=== PATIENT | male | born 1985 | race Caucasian/White ===

== ENCOUNTER 2019-08-29 18:34 | Emergency (ER) | payer BC, SELFPAY ==
[2019-08-29 18:35] VITALS: BP 158/97; PULSE 95; RESP 16; TEMP 36.6; O2SAT 98; BMI 25.1
--- NOTE | 2019-08-29 19:00 | RAD_ITS ---
STUDY: X-RAY - RIGHT FOOT CLINICAL: Male, 33 years old. PT TRIPPED TONIGHT, PAIN IN RT 1ST DIGIT TECHNIQUE: 3 view(s) of the foot. COMPARISON: None. FINDINGS: Normal talus, calcaneus, and tarsal bones. Normal visualized subtalar, talonavicular, calcaneocuboid, tarsal and tarsometatarsal articulations. Normal metatarsi. Normal metatarsophalangeal joint of the great toe. Normal interphalangeal joint of the great toe. There is a cortical defect within the dorsal aspect of the proximal metaphysis first distal phalanx consistent with an underlying fracture. Normal second through fifth metatarsophalangeal joints. Normal interphalangeal joints and phalanges of the lesser toes. The soft tissue structures are unremarkable. RAD/Foot min 3 Views IMPRESSION: First distal phalanx fracture. Electronically Signed: Echo Yip MD at 19:35 EST Tel , Service support ,
--- NOTE | 2019-08-29 19:11 | ED.VISSUMM ---
- ER Visit Summary Date of Service: 08/29/19 Chief Complaint: Right great toe injury History of Present Illness: The patient is a 33 M significant past medical or surgical history. Patient was dog outside. The dog need cardiomyotomy 41 (20 came back to the ground on the ground. He did have fevers on. Denies any prior foot injury or surgery. Complaining of right great toe pain. No other injuries. Physical Examination: Young male no acute distress vital signs stable afebrile. H EENT exam unremarkable neck nontender. Lungs are clear. Heart regular rhythm. Calf nontender. Abdomen soft nontender. He is moving all 4 extremities. Neurovascular intact. Right great toe he has mild swelling and tenderness. Primarily over the phalanges. He can wiggle all toes. DP pulses intact. There is no gross bony deformity. Other toes and ankle is nontender. Otherwise exam unremarkable. Test Results: X-ray right foot 3 view shows on the oblique view shows a fracture of the distal both the great toe. Not visualized on the AP view. Read by myself and radiologist. I did go over the x-ray with patient. Emergency Department Course and Treatment: Patient did not want a postop shoe. Treatment Plan: Ice and elevate the right great toe. Motrin for pain and swelling. Follow-up if not improving. Disposition: Discharge Impression: Acute right great toe distal phalanx fracture This note was generated with eSentire dictation software. It may contain incorrect words, spelling, and punctuation that were not noted in review of the chart prior to signing ED Disposition - Plan for ED Patient: Referrals: Care Physician,No Primary [Primary Care Provider] -
--- NOTE | 2019-08-29 19:46 | ED.DEP ---
ED Disposition - Plan for ED Patient: Disposition: Home or Assisted Living Instructions: FRACTURE, Toe [Closed] Referrals: Gavin Meier MD [STAFF PHYSICIAN] - As Needed Additional Instructions: A small fracture of the distal end of the right great toe. Ice and elevate. Tylenol Motrin for pain. Follow-up as needed.
[2019-08-29 19:58] VITALS: BP 145/86; PULSE 76; RESP 15; O2SAT 97
== END 2019-08-29 20:00 | disposition home or self-care (01) ==
PROVIDERS: Emergency Provider Emergency Medicine
DX: S92.421A Displaced fracture of distal phalanx of right great toe, initial encounter for closed fracture (principal); X58.XXXA Exposure to other specified factors, initial encounter; Y93.9 Activity, unspecified; Y92.9 Unspecified place or not applicable
CPT/HCPCS: 73630; 99282

== ENCOUNTER 2021-09-10 13:32 | Emergency (ER) | payer BC, SELFPAY ==
[2021-09-10 13:34] VITALS: BP 154/106; PULSE 110; RESP 18; TEMP 36.6; O2SAT 99; BMI 25.7
--- NOTE | 2021-09-10 16:05 | EKG12_ITS ---
Test Reason : SOB/HTN Blood Pressure : / mmHG Vent. Rate : 092 BPM Atrial Rate : 092 BPM P-R Int : 158 ms QRS Dur : 088 ms QT Int : 352 ms P-R-T Axes : 043 -18 031 degrees QTc Int : 435 ms Normal sinus rhythm Normal ECG Confirmed by RAYSHAWN ARAGON, AAKASH ([id number]), design editor ZOHREH WEBSTER ([id number]) on 09/12/2021 11:34:03 AM Referred By: ORMAIN Confirmed By:AAKASH TABARES MD
[2021-09-10] MEDS: hydrOXYzine PAM 25 MG Capsule PO (16:09)
[2021-09-10 16:11] VITALS: BP 163/93; PULSE 101; RESP 19
--- NOTE | 2021-09-10 16:31 | EDS_ITS ---
HPI History of Present Illness Chief Complaint: Anxiety Informant: patient Onset/Context/Timing Onset: Today Context: Gradual Onset Timing: Continuous Quality: Anxious Location: Generalized Worsened by: Nothing Relieved by: Nothing Narrative Narrative: Patient presents with anxiety that began today. Patient states he had large amount of alcohol yesterday. Patient states that today his anxiety has been getting progressively worse. Patient states he has had some inte rmittent pain in his chest. Patient admits to some nausea but denies any vomiting. Patient denies any suicidal or homicidal ideations. Patient states nothing makes his anxiety better and nothing makes it worse. Patient states it has been constant all day today. PFSH PFSH Medical History no medical history no medical history Home Medications NK 08/29/19 [History Last Taken Unknown] Allergy/AdvReac Type Severity Reaction Status Date / Time No Known Allergies Allergy Verified 09/10/21 13:35 Surgical History no surgical history no surgical history Social History Smoking Status: Never smoker ROS ROS ED Constitutional Constitutional ED: Denies chills or fever(s) Eyes Eyes: Denies blurry vision or change in vision ENT ENT ED: Denies rhinorrhea or sore throat Cardiovascular Cardiovascular: Reports chest pain; Denies palpitations Respiratory/Chest Respiratory/Chest: Denies cough or dyspnea Gastrointestinal Gastrointestinal: Reports nausea; Denies vomiting Genitourinary Genitourinary ED: Denies dysuria or hematuria Musculoskeletal Musculoskeletal: Denies back pain or neck pain Integumentary Denies abscess or rash Neurologic Neurologic: Denies headache(s) or weakness Psychiatric Psychiatric: Reports anxiety; Denies suicidal ideation or suicidal thoughts Allergic/Immunologic Allergic/Immunologic ED: Denies mouth swelling or urticaria EXAM Physical Exam Const Vital Signs: 09/10/21 13:34 09/10/21 16:11 Temperature 97.9 F Temperature Source Temporal Pulse Rate 110 H 101 H Respiratory Rate 18 19 H Blood Pressure 154/106 H 163/93 H Blood Pressure Mean 122 116 Pulse Ox 99 Oxygen Delivery Method Room Air Positive well nourished and well developed General Appearance ED: well developed HEENT Reports moist mucous membranes Neck supple and no JVD Resp normal respiratory effort and clear to auscultation bilaterally Cardio regular rate, regular rhythm and no murmurs GI normal to inspection, nondistended, normoactive bowel sounds and non-tender Palpation: soft Extremity normal to inspection General Extremety ED: Negative for edema or tenderness General Extremity: Negative for edema Neuro oriented x3, CN's II-XII intact bilaterally and no sensory deficits noted Sensorium / Orientation: alert Motor Exam: strength 5/5 throughout Psych mental status grossly normal Skin no rashes or lesions noted MDM MDM MDM Narrative Medical decision making narrative: EKG was obtained. On my interpretation, it showed a normal sinus rhythm with a rate of 92. NH interval, QRS interval, and QTc intervals were all normal. [place] was normal. There are no acute ST or T wave changes. Patient was given a dose of hydroxyzine here. Patient was starting to feel better on reevaluation. Patient was instructed to drink plenty of fluids. Patient was instructed to follow-up with his primary care physician in 5 to 7 days. Patient was instructed to abstain from alcohol for the next few days. Patient understood and was agreeable with the plan. All questions were answered EKG Initial EKG: Attestation: I personally reviewed and interpreted this EKG as follows: Interpretation: Sinus Rhythm (92) and No Acute Injury Pattern Discharge Plan Triage Chief Complaint: Anxiety ED Provider: Yobany Gonzalez Dx/Rx/DC Orders Clinical Impression: Anxiety attack Instructions: ED Anxiety Reaction Prescriptions: No Action NK RF: 0 Primary Care Provider: Care Physician,No Primary Referrals: Gypsy Charles DO [STAFF PHYSICIAN] - 5-7 Days Care Physician,No Primary [Primary Care Provider] - Disposition Disposition: Home, Self Care
[2021-09-10 17:17] VITALS: PULSE 89; RESP 18; O2SAT 100
== END 2021-09-10 17:25 | disposition home or self-care (01) ==
PROVIDERS: Emergency Provider Emergency Medicine; Visit Provider Emergency Medicine
DX: F41.0 Panic disorder [episodic paroxysmal anxiety] (principal)
CPT/HCPCS: 93005; 99282

== ENCOUNTER 2024-09-24 17:54 | Emergency (ER) | payer OTHER, SELFPAY ==
[2024-09-24 17:55] VITALS: BP 130/89; PULSE 76; RESP 13; TEMP 37.1; O2SAT 100; BMI 23.6
--- NOTE | 2024-09-24 18:22 | EDS_ITS ---
HPI History of Present Illness Chief Complaint: Flank Pain PFSH PFS Medical History Major depressive disorder No known health problems Home Medications ?Medication ?Instructions ?Recorded ?Last Taken ?Type NK 09/24/24 Unknown History Allergy/AdvReac Type Severity Reaction Status Date / Time No Known Allergies Allergy Verified 09/24/24 17:56 Family History Father Anxiety Mother Anxiety Surgical History No history of previous surgery Social History Smoking Status: Never smoker alcohol intake: current alcohol intake frequency: holidays/special occasions only substance use type: does not use EXAM Physical Exam Const Vital Signs: 09/24/24 17:55 09/24/24 20:00 Temperature 98.7 F Temperature Source Oral Pulse Rate 76 64 Respiratory Rate 13 16 Blood Pressure 130/89 H 134/78 H Blood Pressure Mean 102 96 Pulse Ox 100 98 Oxygen Delivery Method Room Air Room Air MDM MDM MDM Narrative Medical decision making narrative: HISTORY OF PRESENT ILLNESS: 38-year-old male presents sudden onset of sharp left-sided abdominal pain radiating to the back and groin. States he feels intense pressure at times. He further states he thinks he may have a kidney stone. No history of prior kidney stones. No falls. No fever. No trouble urinating. No testicular pain REVIEW OF SYSTEMS: Pertinent positives: Flank pain, nausea Pertinent negatives: Vomiting PHYSICAL EXAM: Nursing triage notes reviewed, Vital signs reviewed Constitutional: please see mdm HENT: MMM Eyes: Pupils equal round and reactive to light, Extraocular muscles intact Neck: No stridor, no JVD, full neck ROM Lungs: Clear to auscultation, No wheezing or rales. No increased work of b reathing, no conversational dyspnea, no accessory muscle use, no nasal flaring. No respiratory distress noted Heart: Regular rate and rhythm, No murmurs, No rubs and No gallops, 2+ distal pulses (radial, femoral, posterior tibial) in all extremities Abdomen: Soft, there is no tenderness, rigidity, rebound or guarding, no obvious peritoneal signs, no palpable pulsatile abdominal masses, no auscultated abdominal bruit : Positive left CVAT Extremities: No edema Neuro: No new focal neurological deficits, cranial nerves II through XII intact, 5/5 strength in all present extremities. Intact sensation to light touch in all present extremities, 2+ reflexes bilateral patella tendons. Skin: No rash or lesions noted MEDICAL DECISION MAKING: Chief Complaint: Flank pain External records reviewed: Reviewed prior imaging studies: Reviewed CT scan of the abdomen pelvis from 2014 which showed no acute or inflammatory process seen in the abdomen pelvis Factors affecting care: Depression Social determinants of health: History mental health disorder History obtained from others: none Consults: none [facility] Narrative: The patient was initially hemodynamically stable, afebrile and nontoxic- appearing. Exam with left CVA tenderness I considered the following differential diagnosis: Nephrolithiasis, pyelonephritis, UTI, AAA ALL IMAGES (IF OBTAINED) HAVE BEEN PERSONALLY REVIEWED AND INTERPRETED BY MYSELF. CBC with leukocytosis suggestive of systemic inflammation, no anemia or thrombocytopenia BMP without evidence of significant electrolyte abnormalities, no anion gap, no acute kidney injury. Urinalysis shows no evidence of urinary inflammation suggestive of UTI CT scan of the abdomen pelvis without contrast showed left hydronephrosis and evidence of recently passed kidney stone On reassessment patient's pain completely improved. Is consistent with a passed kidney stone. Urine was not infected. The patient's proper for discharge home The patient and/or family, caregivers express understanding. The patient and/or family, caregivers agrees with the plan. Shared decision making: I will have a discussion with the patient and or visitors regarding risk/benefits of further testing or admission. They will be made aware of of the risk/benefits inherent in this decision they will be given the opportunity to voice understanding. Total critical care time today provided was at least 0 minutes. This excludes separately billable procedures. Critical care time (if documented) is secondary to the patient having high probability of clinically significant/life threat ening deterioration in the patient's condition which required my urgent intervention. Impression: 1. Left flank pain 2. Kidney stone 3. Hydronephrosis Dispo: Discharge This note was generated with [employer] dictation software. It may contain incorrect words, spelling, and punctuation that were not noted in review of the chart prior to signing. Lab Data Labs: Laboratory Results - last 24 hr 09/24/24 09/24/24 17:59 19:42 WBC 13.7 H RBC 4.93 Hgb 14.8 Hct 43.8 MCV 88.8 MCH 30.0 MCHC 33.8 RDW Std Deviation 41.7 RDW Coeff of Felipa 12.9 Plt Count 256 MPV 10.2 Immature Gran % (Auto) 0.200 Neut % (Auto) 38.3 L Lymph % (Auto) 54.3 H Jackson % (Auto) 6.1 Eos % (Auto) 0.6 Baso % (Auto) 0.5 Absolute Neuts (auto) 5.2 Absolute Lymphs (auto) 7.42 H Nucleated RBC % 0 Reactive Lymphocytes 2+ Platelet Estimate A Sodium 139 Potassium 3.4 Chloride Direct 100 Carbon Dioxide 24.7 Anion Gap 14 BUN 14 Creatinine 1.21 H Estim Creat Clear Calc 89.89 Est GFR (MDRD) Non-Af 80 BUN/Creatinine Ratio 11.6 Glucose 117 H Calcium 9.5 Urine Color Yellow Urine Clarity Clear Urine pH 6.5 Ur Specific [place] 1.015 Urine Protein 15 H Urine Glucose (UA) Normal Urine Ketones 50 H Urine Occult Blood 10 H Urine Nitrite Negative Urine Bilirubin Negative Urine Urobilinogen Normal Ur Leukocyte Esterase Negative Urine RBC 0-5 SEEN Urine WBC 0-5 SEEN Ur Squamous Epith Cells 0 SEEN Urine Bacteria 0 SEEN Urine Mucus 1+ Radiography Diagnostic Testing: Clinical Impression(s) from Imaging Studies Abdomen/Pelvis CT 09/24/24 18:31 IMPRESSION: 1. Mild left hydroureteronephrosis with punctate calculus at the left vesicoureteral junction, compatible with recently passed kidney stone. No additional renal calculi. 2. Otherwise unremarkable noncontrast CT of the abdomen and pelvis. One or more dose reduction techniques were used (e.g., Automated exposure control, adjustment of the mA and/or kV according to patient size, use of iterative reconstruction technique). Reading Location: [facility] Discharge Plan Triage Chief Complaint: Flank Pain ED Provider: Elvis Cleveland Dx/Rx/DC Orders Prescriptions: No Action NK Primary Care Provider: Care Physician,No Primary Referrals: Care Physician,No Primary [Primary Care Provider] - Print Language: Faroese
--- NOTE | 2024-09-24 18:31 | CT_ITS ---
PROCEDURE: ABDOMEN/PELVIS WITHOUT CONT REASON FOR EXAM: 38-year-old male, left-sided flank pain, concern for kidney stone. TECHNIQUE: Abdomen and pelvis CT without intravenous contrast. No oral contrast. COMPARISON: None. FINDINGS: Noncontrast technique limits evaluation of the abdominal and pelvic viscera. Lung bases: The heart is normal in size. The bibasilar lungs are clear. Liver: The unopacified liver is normal in size. No biliary ductal dilation. Gallbladder: No radiopaque stones within the gallbladder. Spleen: Unremarkable. Pancreas: Unremarkable. Adrenals: Unremarkable. Kidneys/bladder: Right lower pole renal cysts. Otherwise unremarkable right kidney. Mild left hydroureteronephrosis with punctate calculus just anterior to the left vesicoureteral junction. The urinary bladder is mildly distended. Reproductive Organs: Unremarkable. Bowel: The bowel loops are normal in caliber. No ascites or pneumoperitoneum. Normal appendix. Lymph nodes: Trace fluid/edema within the left retroperitoneum adjacent to the course of the left ureter, likely secondary to recent inflammation. No suspicious lymph node enlargement. Vasculature: Major vascular structures are unremarkable. Bones: No aggressive osseous lesions. CT/Abdomen/Pelvis without Cont IMPRESSION: 1. Mild left hydroureteronephrosis with punctate calculus at the left vesicoure teral junction, compatible with recently passed kidney stone. No additional renal calculi. 2. Otherwise unremarkable noncontrast CT of the abdomen and pelvis. One or more dose reduction techniques were used (e.g., Automated exposure contr ol, adjustment of the mA and/or kV according to patient size, use of iterative reconstruction technique). Reading Location: [facility]
[2024-09-24 18:51] LABS: Absolute Lymphocyte Count 7.42 X10^3/uL (0.83-4.51); Absolute Neutrophil Count 5.2 X10^3/uL (2.0-7.7); Basophil# 0.07 X10^3/uL; Basophil% 0.5 % (0-1); Eosinophil# 0.08 X10^3/uL; Eosinophils% 0.6 % (0-5); Hematocrit 43.8 % (40-54); Hemoglobin 14.8 g/dL (13.0-16.5); Lymphocyte # 7.42 X10^3/ul (0.83-4.51); Lymphocyte % 54.3 % (19-41); Mean Corp Hgb Conc 33.8 g/dL (32-36); Mean Corpuscular Volume 88.8 fL (80-94); Mean Platelet Vol. 10.2 fl (6.2-12.0); Monocyte# 0.84 X10^3/uL; Monocyte% 6.1 % (0-10); NRBC Flagged by Analyzer 0 % (0-5); Neutrophil # 5.23 X10^3/uL (2.7-7.7); Neutrophil % 38.3 % (47-70); POSITIVE DIFFERENTIAL YES; POSITIVE MORPHOLOGY YES; Platelet Count 256 K/mm3 (150-450); RBC Distribution Width CV 12.9 % (11.6-14.6); RBC Distribution Width SD 41.7 fl (35.1-43.9); Red Blood Count 4.93 M/mm3 (4.6-6.2); White Blood Count 13.7 K/mm3 (4.4-11.0)
[2024-09-24 18:52] LABS: Differential Indicated SCAN CRITERIA MET
[2024-09-24] MEDS: Ondansetron 4 MG/2 ML Vial IV (18:59)
[2024-09-24] MEDS: Morphine 4 MG/ML Syringe IV (18:59)
[2024-09-24] MEDS: 0.9% Normal Saline (1000mL) 1,000 ML 999 ML IV (18:59)
[2024-09-24] MEDS: Ketorolac 15 MG/ML Vial IV (18:59)
[2024-09-24 19:21] LABS: Anion Gap 14 (5-15); BUN 14 mg/dL (4-19); BUN/Creat Ratio 11.6 RATIO (10-20); Calcium 9.5 mg/dL (7.6-11.0); Carbon Dioxide 24.7 mmol/L (22.0-29.0); Chloride 100 mmol/L (96-108); Creatinine, Serum 1.21 mg/dL (0.70-1.20); EST Glomerular Filtration Rate 80 (>60); Estimated Creatinine Clearance 89.89 ml/min; Glucose 117 mg/dL (70-99); Potassium 3.4 mmol/L (3.3-5.1); Sodium Level 139 mmol/L (133-145)
[2024-09-24 19:39] LABS: Reactive Lymphocyte 2+
[2024-09-24 19:40] LABS: Platelet Estimate A (ADEQ)
[2024-09-24 19:48] LABS: Bacteria 0 SEEN /hpf (None Seen); Squamous Epithelial Cells - UA 0 SEEN /hpf (0-5)
[2024-09-24 20:00] VITALS: BP 134/78; PULSE 64; RESP 16; O2SAT 98
[2024-09-24 20:01] LABS: Glucose, Dipstick Normal (Normal); Ketone-Dipstick 50 mg/dl (Negative); Leukocyte Esterase-Dipstick Negative /ul (Negative); Nitrite-Dipstick Negative (Negative); Occult Blood-Urine 10 /ul (Negative); Protein-Dipstick 15 mg/dl (Negative); Specific Gravity, Urine 1.015 (1.002-1.030); Urine Bilirubin Dipstick Negative (Negative); Urine Urobilinogen Normal (Normal); Urine pH 6.5 (5.0 - 8.0)
[2024-09-24 20:05] LABS: Color, Urine Yellow (Yellow); Urine Clarity Clear (Clear)
[2024-09-24 20:12] LABS: Mucous, Urine 1+ /hpf (<or=2+); Red Blood Cells-Urine 0-5 SEEN /hpf (0-5); White Blood Cells 0-5 SEEN /hpf (0-5)
[2024-09-24 20:32] VITALS: BP 128/78; PULSE 64; RESP 16; TEMP 36.6; O2SAT 99
== END 2024-09-24 20:33 | disposition home or self-care (01) ==
PROVIDERS: Emergency Provider Emergency Medicine; Visit Provider Emergency Medicine
DX: N13.2 Hydronephrosis with renal and ureteral calculous obstruction (principal); R10.9 Unspecified abdominal pain
CPT/HCPCS: 74176; 80048; 81001; 85025; 96361; 96374; 96375; 99283; A4216; J2405

== ENCOUNTER 2025-04-05 20:31 | Emergency (ER) | payer OTHER, SELFPAY ==
[2025-04-05 20:32] VITALS: BP 149/98; PULSE 64; RESP 18; TEMP 36.2; O2SAT 100; BMI 25.9
--- NOTE | 2025-04-05 21:24 | CT_ITS ---
PROCEDURE: CTA HEAD AND NECK W/ CONTRAST 04/05/2025 REASON FOR EXAM: RIGHT ARM PARESTHESIAS TECHNIQUE: Procedure Code: [id number].HDNCK Modality: CT Procedure: CTA HEAD AND NECK W/ CONTRAST Multiplanar Sagittal and Coronal images were obtained. 3D/MIP postprocessing was performed CONTRAST: Isovue 370 VOLUME: 99 mL One or more dose reduction techniques were used (e.g., Automated exposure control, adjustment of the mA and/or kV according to patient size, use of iterative reconstruction technique). RADIATION DOSE SUMMARY: DLP: 1672.21 mGycm COMPARISON: None available. FINDINGS: CTA HEAD: Patent intracranial arterial vasculature. No large vessel occlusion, flow- limiting stenosis, saccular aneurysm, or vascular malformation identified. origin of the left [employer] CLAIMS A[employer]LYST with diminutive/hypoplastic connection to the basilar artery, an anatomic variant. Dural venous sinuses appear patent. CTA NECK: Conventional aortic arch branching. Bilateral cervical carotid and codominant vertebral arteries are patent, normal in course and caliber. No aneurysm or dissection. NONCONTRAST CT HEAD: No acute intracranial hemorrhage, extra-axial collection, mass effect or evidence of acute infarct. Ventricular and sulcal size and configuration are within normal limits. Prominent slightly asymmetric cisterna magna, versus possible small retrocerebellar benign arachnoid cyst. Unremarkable orbits. Intact skull base and calvarium. Well-aerated paranasal sinuses and mastoid air cells. CT/CTA Head AND Neck W/ Contrast IMPRESSION: Normal CTA of the head neck. No aneurysm or dissection. Reading Location: [facility]
[2025-04-05 21:53] LABS: Hematocrit 43.2 % (40-54); Hemoglobin 14.8 g/dL (13.0-16.5); Immature Granulocytes Count 0.030 X10^3/uL (0.0-0.0); Mean Corp Hgb Conc 34.3 g/dL (32-36); Mean Corpuscular Volume 88.2 fL (80-94); Mean Platelet Vol. 9.5 fl (6.2-12.0); NRBC Flagged by Analyzer 0 % (0-5); Platelet Count 231 K/mm3 (150-450); RBC Distribution Width CV 12.4 % (11.6-14.6); RBC Distribution Width SD 40.3 fl (35.1-43.9); Red Blood Count 4.90 M/mm3 (4.6-6.2); White Blood Count 9.5 K/mm3 (4.4-11.0)
[2025-04-05 22:05] LABS: Partial Thromboplast Time 25.7 Seconds (24.1-36.2); Prothrombin Time (Protime)PT. 12.7 SECONDS (11.7-14.9)
--- NOTE | 2025-04-05 22:05 | RAD_ITS ---
PROCEDURE: L/S SPINE MIN 4 VIEWS 04/05/2025 REASON FOR EXAM: PAIN, LEFT LEG PARESTHESIAS TECHNIQUE: Procedure Code: RADSPLS Modality: DX Procedure: L/S SPINE MIN 4 VIEWS FINDINGS: No evidence of acute fracture or dislocation. Vertebral body heights are maintained. Mild disc space narrowing at L5-S1. The remaining intervertebral disc spaces are maintained. RAD/L/S Spine Min 4 Views IMPRESSION: L5-S1 mild spondylosis. Reading Location: [id number]
[2025-04-05 22:17] LABS: Anion Gap 12 (5-15); BUN 13 mg/dL (4-19); BUN/Creat Ratio 10.9 RATIO (10-20); Calcium,Total 9.2 mg/dL (7.6-11.0); Carbon Dioxide 24.6 mmol/L (21.0-32.0); Chloride 102 mmol/L (98-108); Estimated Creatinine Clearance 92.86 ml/min (50-250); Glucose 89 mg/dL (70-99); Potassium 3.5 mmol/L (3.3-5.1)
--- NOTE | 2025-04-05 23:11 | EDS_ITS ---
HPI History of Present Illness Chief Complaint: Back Informant: patient Narrative Narrative: Patient is a 39-year-old male with history of depression and prior to this disease diagnosed in his lumbar spine. He is presenting today for worsening back pain, stiffness, numbness to his left calf area as well as an episode of numbness to his right arm. Patient states he goes to the chiropractor monthly. He had adjustments on , 4 days ago. He states he had his back and neck popped. He states usually feels much better after this but the following afternoon he started to feel more tight and stiff in his back. He has has been having worsening pain in his lower back and pain going down his left leg. He started to have numbness in his left calf area. States he just feels very tight and stiff. He had notes since then he has had some increased ringing in his ears. Denies any headaches. Denies any vision changes. Was at a orthodoxy event tonight when he suddenly felt flushed and then his right arm felt numb and tingly. There were healthcare providers there and he has blood pressure checked it was 156/113. He decided to come in to be evaluated. He has been taking ibuprofen and Tylenol with no relief of his recent low back pain. Denies any bowel or bladder incontinence. Denies any saddle anesthesia. No fever or chills reported. States he has just felt cloudy and more can today. Denies any neck pain. Denies any nausea or vomiting. [facility] Medical History Major depressive disorder No known health problems Home Medications ?Medication ?Instructions ?Recorded ?Last Taken ?Type hydrocodone-acetaminophen 5-325mg 1 tab PO Q8H PRN Natalee n 3 days #10 04/05/25 Unknown Rx 5mg-325mg TABLETS prednisone 20 mg tablet 40 mg (2 x 20 mg) PO DAILY # 10 tabs 04/05/25 Unknown Rx Allergy/AdvReac Type Severity Reaction Status Date / Time No Known Allergies Allergy Verified 04/05/25 20:32 Family History Father Anxiety Mother Anxiety Surgical History No history of previous surgery Social History (Reviewed 09/24/24 @ 18:05 by Neris Yang Smoking Status: Never smoker alcohol intake: current alcohol intake frequency: holidays/special occasions only substance use type: does not use ROS ROS ED Constitutional Constitutional ED: Denies chills or fever(s) Eyes Eyes: Denies blurry vision or change in vision ENT ENT ED: Reports other Details: Tinnitus?does report a history of it but feels that it has been worse the past few days ; Denies ear pain, rhinorrhea or sore throat Cardiovascular Cardiovascular: Denies chest pain Respiratory/Chest Respiratory/Chest: Denies cough or dyspnea Gastrointestinal Gastrointestinal: Denies abdominal pain, diarrhea, nausea or vomiting Genitourinary Genitourinary ED: Denies dysuria, hematuria or urinary frequency Musculoskeletal Musculoskeletal: Reports back pain; Denies neck pain Integumentary Denies rash Neurologic Neurologic: Reports paresthesias RUE and LUE (Calf area); Denies headache(s) or weakness Hematologic/Lymphatic Hematologic/Lymphatic: Denies easy bleeding or easy bruising EXAM Physical Exam Const Vital Signs: 04/05/25 20:32 04/05/25 23:29 Temperature 97.2 F L 97.2 F L Temperature Source Temporal Pulse Rate 64 71 Respiratory Rate 18 18 Blood Pressure 149/98 H 132/71 H Blood Pressure Mean 115 91 Pulse Ox 100 100 Oxygen Delivery Method Room Air Positive well nourished and well developed General Appearance ED: well developed and NAD Eyes PERRL Neck supple and no JVD Neck Narrative: No bruising appreciated. No midline tenderness. Normal ROM Chest Wall inspection of chest normal and palpation of chest normal Resp normal respiratory effort and clear to auscultation bilaterally Cardio regular rate, regular rhythm and no murmurs Cardio Narrative: 2+ radial and DP pulses GI normal to inspection, nondistended, normoactive bowel sounds, non-tender and non-distended Back/Spine Thoracic Spine / Upper Back: Negative for thoracic spinal tenderness or paraspinal muscle tenderness Lumbar Spine / Lower Back: Negative for lumbar spinal tenderness Extremity normal to inspection Neuro oriented x3 and CN's II-XII intact bilaterally Neuro Narrative: Normal strength and sensation of the upper extremities. Normal strength and sensation of the right lower extremity. 5/5 strength with flexion extension of the great toe. Equal bilateral sensation of the into between the 1st and 2nd toes. The left lower extremity patient has preserved strength with plantar dorsiflexion. He has subjective paresthesias to the left calf area. Increased pain with straight leg to the raise of the left leg Normal coordination Sensorium / Orientation: alert Psych mental status grossly normal Skin no rashes or lesions noted and no wounds MDM MDM MDM Narrative Medical decision making narrative: Patient is evaluated for worsening pain going down his left leg with paresthesias to his left calf as well as an episode of paresthesias to his right arm. Patient had recent chiropractic adjustment to his neck and differential includes TIA, carotid artery dissection, arrhythmia, lumbar radiculopathy as well as anxiety reaction. He does not have any fever or meningeal signs low special for meningitis. Patient is given IV morphine and Zofran for symptoms associated with his low back pain. CBC, coags and BMP obtained which were all largely normal. CT of the head and neck is normal with no aneurysm or dissection. Lumbar spinal x- rays obtained given his increased pain after back adjustments to look for any underlying fracture. He is not any fracture but does have L5-S1 mild spondylosis. This is likely associated with his lumbar radiculopathy he is describing. He does not have any focal weakness and still able to ambulate. Does not have an acute foot drop. Do not think requires an emergent MRI. He is not have any red flag symptoms consistent with cauda equina syndrome. Patient be given a burst of steroids as well as course of pain medication (Beulah). We discharged home with referral outpatient to spinal surgery for further evaluation of this. As far as his transient episode of paresthesias to the right arm he is very low risk for TIA and his EKG does not show any ischemic changes or arrhythmia, he can follow-up outpatient with his primary care doctor as needed. Lab Data Attestation: I reviewed the patient's lab results. Labs: Laboratory Results - last 24 hr 04/05/25 21:45 WBC 9.5 RBC 4.90 Hgb 14.8 Hct 43.2 MCV 88.2 MCH 30.2 MCHC 34.3 RDW Std Deviation 40.3 RDW Coeff of Felipa 12.4 Plt Count 231 MPV 9.5 Immature Gran % (Auto) 0.300 Neut % (Auto) 52.6 Lymph % (Auto) 39.9 [place] % (Auto) 6.1 Eos % (Auto) 0.8 Baso % (Auto) 0.3 Absolute Neuts (auto) 5.0 Absolute Lymphs (auto) 3.80 Nucleated RBC % 0 PT 12.7 INR 0.9 APTT 25.7 Sodium 139 Potassium 3.5 Chloride 102 Carbon Dioxide 24.6 Anion Gap 12 BUN 13 Creatinine 1.16 Estim Creat Clear Calc 92.86 Est GFR (MDRD) Non-Af 83 BUN/Creatinine Ratio 10.9 Glucose 89 Calcium 9.2 Radiography Diagnostic Testing: Clinical Impression(s) from Imaging Studies Head/Neck CTA 04/05/25 21:24 IMPRESSION: Normal CTA of the head neck. No aneurysm or dissection. Reading Location: [facility] Lumbar Spine X-Ray 04/05/25 22:05 IMPRESSION: L5-S1 mild spondylosis. Reading Location: [address] Rhythm Strip Rhythm Strip: Sinus Rhythm Rate: 57 Ectopy: None EKG Initial EKG: Attestation: I personally reviewed and interpreted this EKG as follows: Interpretation: Sinus Bradycardia Comments: Sinus bradycardia at a rate of 57 bpm Normal axis Normal intervals Normal ST segments Minimal bulges criteria for LVH Discharge Plan Triage Chief Complaint: Back ED Provider: Анна Myers Dx/Rx/DC Orders Clinical Impression: Acute lumbar radiculopathy, Arm paresthesia, right, Low back pain Instructions: Common Spine and Disk Problems, Understanding Lumbar Radiculopathy, ED Back and Neck Pain, General, ED Paresthesia Prescriptions: New prednisone 20 mg tablet 40 mg PO DAILY Qty: 10 0RF hydrocodone-acetaminophen 5-325 mg tablet 1 tab PO Q8H PRN (Reason: Pain) 3 Days Qty: 10 0RF Stand Alone Forms: ED Work / School Excuse Primary Care Provider: Care Physician,No Primary Referrals: Elliot Dean MD [Med Staff - Active Staff] - Care Physician,No Primary [Primary Care Provider] - Activity Restrictions/Additional Instructions: Your CTA of the head and neck does not show any acute abnormalities. Your x-ray of your back did show L5/S1 mild spondylosis. Please follow-up with a health safety specialist especially given the numbness in your left calf. You been placed on a burst of prednisone. Print Language: Yoruba Disposition Disposition: Home, Self Care Discharge Date/Time: 04/05/25 23:30
[2025-04-05] MEDS: HYDROcodone Bitartrate/Apap 5/325 Tablet PO (23:23)
[2025-04-05 23:29] VITALS: BP 132/71; PULSE 71; RESP 18; TEMP 36.2; O2SAT 100
== END 2025-04-05 23:30 | disposition home or self-care (01) ==
PROVIDERS: Emergency Provider Emergency Medicine; Visit Provider Emergency Medicine
DX: M54.16 Radiculopathy, lumbar region (principal); R20.2 Paresthesia of skin; M54.50 Low back pain, unspecified
CPT/HCPCS: 70496; 70498; 72110; 80048; 85025; 85610; 85730; 93005; 96374; 96375; 99283; Q9967; A4216; J2405